=== PATIENT | male | born 1930 | race Caucasian/White ===

== ENCOUNTER 2016-07-13 07:53 | Inpatient (IN) | payer OTHER ==
[~2016-07-13] VITALS: Ht 182.9 cm; Wt 52.4 kg
--- NOTE | 2016-07-13 09:19 | ED NURSING NOTES ---
Clinical Report - Nurses [facility] [address] [place] [address] 07/13/2016 7:57 Patient: PARTH TREVIZO TRIAGE Triage time 07:51 Jul 13 2016. Acuity: LEVEL 3. Chief Complaint: DIZZINESS. 08:07/13/16. Alert. No acute distress. SEPSIS SCREEN: Sepsis Screen. Negative (no infection suspected/documented). JERSE[place] COMA SCORE: [place] Coma Scale: 15- eyes open spontaneously (4); best verbal response- oriented x 4 (5); best motor response- obeys commands (6). --08:01 Justa Covington 08:07/13/16. BP: 139/89. HR: 94. RR: 18. O2 saturation: 98%. Temp: 98.1 F. Pain level now 0/10. --08:01 Justa Covington. Weight: 68 kg stated. Height/Length: 72 inches Per Patient. BMI: 20.3. --07:59 Justa Covington. Medications None. --07:57 Justa Covington. Medication/allergy information source: the patient. --08:01 Justa Covington. Allergies None. --07:57 Justa Covington. History Arrived by EMS. Historian: EMS. Unaccompanied. No primary care physician. This started "a couple days ago". ( Negative FAST exam. Pt reports feeling "shitty." Pt denies cough, vomiting, syncope.). The patient has had weakness. No ear pain, nausea, trouble walking, headache or vomiting. No fainting episodes or tinnitus. 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 BP: 130/palp. HR: 72. ( Hasn't been eating recently. EMS reports family states he's had a cold recently, pt denies. Pt is alert and oriented. Lives at [address], unassisted. Usually gets around with a walker.). PAST MEDICAL HX: No history of stroke, diabetes mellitus or hypertension. No history of seizures or GI bleed. Immunizations: status is unknown. SOCIAL HX: Never smoker. No alcohol use or drug use. NUTRITIONAL RISK ASSESSMENT: The nutritional risk assessment revealed no deficiencies. FUNCTIONAL ASSESSMENT: Functional assessment: no impairments noted. LEARNING NEEDS ASSESSMENT: The learning needs assessment revealed no barriers. FALL RISK ASSESSMENT: Fall risk assessment completed. Risk factors identified include patient age greater than 65 years. SKIN INTEGRITY ASSESSMENT: Skin integrity risk assessment completed. No skin integrity risk identified. --08:01 Justa Covington. PROBLEMS: None. --07:57 Justa Covington. ADDITIONAL SURGERIES: Hip Surgery. --07:57 Justa Covington Inguinal Hernia Repair. --07:58 Justa Covington. Assessment The patient states feels the same. --08:01 Justa Covington. Interventions ID band on patient. --08:01 Justa Covington. PHYSICAL ASSESSMENT 08:01 07/13/16. To room via stretcher. Patient gowned. GENERAL / NEURO / PSYCH: Oriented X 4. Appears in no acute distress. Alert. Speech within normal limits. HEENT: No facial asymmetry noted. Pupils equal, round and reactive to light. RESPIRATORY: Respirations not labored. CVS: Capillary refill less than 2 seconds. GI / : Abdomen soft and nontender. SKIN: Skin is warm and dry. --08:01 Justa Covington. NURSING PROGRESS NOTES 08:02 07/13/16. The plan of care for this patient has been created. quality assurance monitor, pulse oximeter and NIBP monitor placed on patient; monitoring manager- Lead II and V5; monitor alarms on. Patient gowned. Head of bed elevated. Reassurance given. Two patient identifiers checked. Call light placed in reach. Side rails up x 2. Bed placed in lowest position. Brakes of bed on. Patient ready for evaluation- chart flagged and ED physician notified. --08:02 Justa Covington 08:21 07/13/2016 Site #1 started via IV in the right forearm with an 20g angiocath; one attempt. Blood drawn: rainbow set. Labeled in the presence of the patient and sent to the lab. Saline lock flushed with 10 mL saline. --08:31 Isela Castaneda R.N. 08:32 07/13/2016 Started bag #1 500 mL IV Fluids IV NS (Saline); at 250 mL/hr over 1 hour(s) via site #1 --08:32 Isela Castaneda R.N. ( Urine collected and sent to the lab). --08:33 Isela Castaneda R.N. ( Lab here drawing blood.). --09:46 Ros Mena R.N. 09:03 07/13/2016 IV Fluids IV NS Response: no adverse reaction. --10:03 Rhiannon Hopper R.N. 09:24 07/13/2016 Started 2 gm of Ceftriaxone IVPB in bag #1 50 mL; at 150 mL/hr over 30 minute(s) via site #1 via IV pump. Allergies verified and confirmed 5 rights. IV patency established. IV site checked: no pain, redness, or swelling. IV flushed thoroughly pre- and post-medication administration. --09:24 Rhiannon Hopper R.N. 09:46 07/13/2016 Ceftriaxone IVPB Discontinued: bag #1 infused. Total amount infused: 50 mL. IV patency established. IV site checked: no pain, redness, or swelling. IV flushed thoroughly. --09:46 Ros Mena R.N. 08:30 late entry -. Reassurance given. Reassessment after fluids administered and medication administered. He has had no adverse reaction. Overall patient status is the same. RESPIRATORY: Respiratory distress present. Two patient identifiers checked. Call light placed in reach. Side rails up x 2. Bed placed in lowest position. Brakes of bed on. Brakes of chair on. --10:13 Rhiannon Hopper R.N. 08:30 07/13/16. BP: 124/74 taken on the left arm, via an automated monitor, while lying. HR: 88. RR: 17. O2 saturation: 98%. Temp: 97.8 F (oral). Pain level now: 0/10. --10:13 Rhiannon Hopper R.N. 09:00 07/13/16. BP: 105/88 (small adult cuff) taken on the left arm, via an automated monitor, while lying. HR: 88. RR: 17. O2 saturation: 98% on room air. Pain level now: 0/10. --10:16 Rhiannon Hopper R.N. 09:00 late entry -. Warming measures: blanket applied. Assisted patient (assistance with urination). Reassurance given. The patient is calm. ( Pt forgetful at times, continuous reassurance given, call bed at bedside and side rails up, safety maintained). --10:16 Rhiannon Hopper R.N. 10:16 07/13/16. BP: 105/88 (small adult cuff) taken on the right arm, via an automated monitor, while lying. HR: 98. RR: 19. O2 saturation: 98% on room air. Pain level now: 0/10. --10:17 Rhiannon Hopper R.N. Cardiac rhythm: normal sinus rhythm. Reassurance given. GENERAL / NEURO / PSYCH: Patient is calm and cooperative. Alert. RESPIRATORY: Denies difficulty breathing. CVS: Denies chest pain. Two patient identifiers checked. Call light placed in reach. Side rails up x 2. Bed placed in lowest position. Brakes of bed on. Brakes of chair on. --10:17 Rhiannon Hopper R.N. 09:15 07/13/2016 IV Fluids IV NS Discontinued: bag #1 completed upon admission. Total amount infused: 500 mL. IV patency established. IV site checked: no pain, redness, or swelling. IV flushed thoroughly. --10:48 Rhiannon Hopper R.N. DISPOSITION / DISCHARGE 10:41 07/13/2016 Site #1 reassessed; patent. Flushed with 10 mL saline. --10:41 Rhiannon Hopper R.N. Cardiac rhythm: normal sinus rhythm. Departure time: 1043 AM. Condition at departure: stable. Fall risk assessment completed. Risk factors identified include patient age greater than 65 years and impairment of mobility, hearing and cognition. Fall interventions initiated. Side rails up x2. Brakes on Bed in low position. Patient visible from nurses' station. Call light in reach of patient. Instructed not to get up without assistance. Admitted to the Critical Care Unit (1042 AM). Transferred. Transported via stretcher by transport team. Report was given to a nurse. Report included patient's care, treatment, medications, reviewed medication reconcilliation, and condition (including any recent changes or anticipated changes). All questions were answered. Report was acknowledged. (ZAHEER Moore). ( Pt transferred safely via stretcher, VSS). --10:45 Rhiannon Hopper R.N. 10:40 07/13/16. BP: 108/87 (small adult cuff) taken on the left arm, via an automated monitor, while lying. HR: 78. RR: 12. O2 saturation: 98%. Temp: 97.8 F. Pain level now: 0/10. --10:45 Rhiannon Hopper R.N. Locked/Released at 07/13/2016 10:48 by Rhiannon Hopper R.N.
--- NOTE | 2016-07-13 09:19 | ED ORDER SUMMARY ---
..... Patient: PARTH TREVIZO OrderSheet [facility] VisitID: [id number] [address] [place] [address] 85y, M Registration Date/Time: 07/13/2016 ORDER SHEET Weight: 68.0 kg (stated) Allergies: None GENERAL ORDERS: Chest 2V Urgent (08:07/13/2016 Bandar Boyd) (Ack 8:42 RKaruga) (8:53 EHassan R.N.) Tube Backer (Continuous) (weak, dizzy. ) (08:07/13/2016 Bandar Boyd) (8:33 SStone R.N.) CBC w Diff Urgent (08:07/13/2016 Bandar Boyd) (Ack 8:42 RKaruga) (8:53 EHassan R.N.) CMP Urgent (08:07/13/2016 Bandar Boyd) (Ack 8:42 RKaruga) (8:53 EHassan R.N.) UA-Culture if indicated Urgent (08:07/13/2016 Bandar Boyd) (Ack 8:42 RKaruga) (8:53 EHassan R.N.) Lactate, Serum Urgent (08:07/13/2016 Bandar Boyd) (Ack 8:42 RKaruga) (8:53 EHassan R.N.) Pulse oximeter (08:07/13/2016 Bandar Boyd) (8:33 SStone R.N.) EKG - ER Stat (08:17 07/13/2016 Bandar Boyd) (8:18 SBalde R.N.) PCT (Procalcitonin) Urgent (09:13 07/13/2016 Bandar Boyd) (9:15 EHassan R.N.) Blood Culture (No) (N/A) Urgent (09:14 07/13/2016 Bandar Boyd) (Ack 9:40 RKaruga) (9:46 SBalde R.N.) MEDICATION ORDERS: IV FLUIDS: IV NS : initial bolus 500 mL (1000 mL/hr), then none - for X1 (NOW) (08:16 07/13/2016 Bandar Boyd) (Ack 8:17 SStone R.N.) (8:32 SStone R.N.) Ceftriaxone IV 2 gm/50mL (NOW) (09:14 07/13/2016 Bandar Boyd) (9:24 EHassan R.N.) Azithromycin IV 500 mg/250 mL (NOW) (09:14 07/13/2016 Bandar Boyd) ORDER SHEET NOTES: [Electronically signed by Rhiannon Hopper R.N. (10:48 07/13/2016)] [Electronically signed by Ayan Hernandes Dr. (03:55 07/20/2016)] [Electronically locked/signed by Rhiannon Hopper R.N. (10:48 07/13/2016)]
--- NOTE | 2016-07-13 09:19 | ED CLINICAL REPORT ---
Clinical Report - Physicians/Mid Levels [facility] [address] [place] [address] 07/13/2016 7:57 Patient: PARTH TREVIZO Arrived- By ambulance. Historian- patient and EMS personnel. HISTORY OF PRESENT ILLNESS Chief Complaint: DIZZINESS and WEAKNESS. Severity described as moderate at its maximum. When seen in the E.D., severity described as moderate. Modifying factors- relieved by nothing. Not worsened by anything. This started past few days and is still present and worsening. It was gradual in onset and has been constant but is not gone now. Patient was last known well (a few days ago). Described as feeling weak all over. No nausea, vomiting, hearing loss, tinnitus or ear pain. (Patient reports no pain anywhere, difficulty breathing, numbness, cough, fever, weakness, tingling, urinary symptoms or bowel problems.). Similar symptoms previously: None. Recent medical care: Not recently seen/assessed. REVIEW OF SYSTEMS No headache, head injury, chest pain or fever. All systems otherwise negative, except as recorded above. PAST HISTORY See nurses notes. Medications: None. Allergies: None. SOCIAL HISTORY Never smoker. No alcohol use or drug use. Is a local resident. ADDITIONAL NOTES The nursing notes have been reviewed. PHYSICAL EXAM Vital Signs: 07/13/2016 08:01 BP: 139/89. HR: 94. RR: 18. O2 saturation: 98%. Temp: 98.1 F. Blood pressure normal. Oxygen saturation normal. Appearance: Alert. No acute distress. Eyes: Pupils equal, round and reactive to light. No nystagmus. Extraocular movements normal. ENT: Normal ENT inspection. TM's normal. Dry mucous membranes present. Pharynx normal. Neck: Normal inspection. Neck supple. No meningeal signs. CVS: Normal heart rate and rhythm. Heart sounds normal. Pulses normal. Respiratory: No respiratory distress. Breath sounds normal. Abdomen: Soft and nontender. No organomegaly. Back: Normal inspection. Skin: Skin warm and dry. Normal skin color. No rash. Normal skin turgor. Extremities: Extremities exhibit normal ROM. No lower extremity edema. Neuro: Alert. Mood/affect normal. Speech normal. Cranial nerves normal (as tested). No motor deficit. No sensory deficit. LABS, X-RAYS, AND EKG EKG: No acute ischemia. Rate: 87. Normal P waves. Normal NADIA. Normal QRS complex. Normal axis. Left axis deviation. Normal ST and T waves, QT and QTc. The study has been interpreted contemporaneously by me. The study has been independently viewed by me. Artifact present. Chest X-ray: (bilateral patchy infiltrates concerning for pneumonia). Views: PA and lateral. The X-rays were independently viewed by me and interpreted contemporaneously by me. Laboratory Tests: CBC w Diff: (MARGI: 07/14/2016 04:20) ( MsgRcvd 07/14/2016 05:39) Final results Test Result Flag Units (Reference) WHITE BLOOD COUNT 7.8 K/uL (4.5-11.5) RED BLOOD COUNT 4.09 L M/uL (4.50-5.90) HEMOGLOBIN 12.3 L gm/dL (13.5-17.5) HEMATOCRIT 37.9 L % (41.0-53.0) MEAN CELL VOLUME 93 fL (80-100) MEAN CORPUSCULAR HGB 30 pg (26-34) MEAN CORPUSCULAR HGB CONC 32 g/dL (31-37) RED CELL DISTRIBUTION WIDTH 14.9 H % (11.6-14.8) PLATELET COUNT 262 K/uL (150-400) NEUTROPHIL % 80.5 H % (50-75) LYMPH % 10.1 L % (25-40) MONO % 7.7 % (3-14) EOSINOPHIL % 1.6 % (0-4) BASOPHIL % 0.1 % (0-2) BMP: (MARGI: 07/14/2016 04:20) ( MsgRcvd 07/14/2016 05:57) Final results Test Result Flag Units (Reference) GLUCOSE 76 mg/dL (70-110) BUN 20 # H mg/dL (7-18) CREATININE 0.6 mg/dL (0.6-1.3) Estimated GFR >60 mL/min Estimated GFR- >60 mL/min Note: Persistent reduction over 3 months in eGFR<60 mL/min/1.73 m2 defines CKD. Patients with eGFR values>=60 mL/min/1.73 m2 may also have CKD if evidence ofpersistent proteinuria. Additional information may be foundat www.kidney.org. SODIUM 142 mmol/L (136-145) POTASSIUM 3.4 L mmol/L (3.5-5.1) CHLORIDE 107 mmol/L (98-107) CARBON DIOXIDE 25 mmol/L (21-32) CALCIUM 7.6 L mg/dL (8.5-10.1) MAGNESIUM 1.7 L mg/dL (1.8-2.4) UA-Culture if indicated: (MARGI: 07/13/2016 08:30) ( MsgRcvd 07/13/2016 09:01) Final results Test Result Flag Units (Reference) URINE COLOR DERRICK URINE APPEARANCE CLEAR URINE GLUCOSE NEGATIVE (NEGATIVE) URINE BILIRUBIN 1+ (NEGATIVE) URINE BILIRUBIN ICTOTEST NEGATIVE (NEGATIVE) URINE KETONE TRACE (NEGATIVE) URINE SPECIFIC GRAVITY 1.025 (1.010-1.030) URINE PH 6.0 (5.0-8.0) URINE PROTEIN TRACE (NEGATIVE) URINE UROBILINOGEN 1.0 EU/dL (0.2-1.0) URINE NITRITE NEGATIVE (NEGATIVE) URINE BLOOD 2+ (NEGATIVE) URINE LEUK ESTERASE NEGATIVE (NEGATIVE) URINE RBC 3-5 rbc/hpf (0-1) URINE WBC 1-3 wbc/hpf (0-1) URINE EPITHELIAL CELLS 1-3 EPI/hpf (0-5) URINE BACTERIA FEW (1+) (NONE SEEN) URINE COMMENT CULT NOT INDICATED 1+ AMORPHOUS URATESURINE CULTURES ARE SET-UP BASED ON THE FOLLOWING CRITERIA:POSITIVE NITRITEPOSITIVE LEUKOCYTE ESTERASEGREATER THAN 10 WHITE BLOOD CELLSMODERATE (2+) OR GREATER BACTERIA CBC w Diff: (MARGI: 07/13/2016 08:25) ( MsgRcvd 07/13/2016 08:35) Final results Test Result Flag Units (Reference) WHITE BLOOD COUNT 8.7 K/uL (4.5-11.5) RED BLOOD COUNT 4.71 M/uL (4.50-5.90) HEMOGLOBIN 14.1 gm/dL (13.5-17.5) HEMATOCRIT 43.7 % (41.0-53.0) MEAN CELL VOLUME 93 fL (80-100) MEAN CORPUSCULAR HGB 30 pg (26-34) MEAN CORPUSCULAR HGB CONC 32 g/dL (31-37) RED CELL DISTRIBUTION WIDTH 14.6 % (11.6-14.8) PLATELET COUNT 323 K/uL (150-400) NEUTROPHIL % 87.3 H % (50-75) LYMPH % 7.1 L % (25-40) MONO % 5.5 % (3-14) EOSINOPHIL % 0.1 % (0-4) BASOPHIL % 0 % (0-2) [id number]: (MARGI: 07/13/2016 08:25) ( MsgRcvd 07/13/2016 10:09) Final results Test Result Flag Units (Reference) PROCALCITONIN <0.5 ng/mL (0-0.5) PCT Concentration: Interpretation : Risk/option for action PCT <=0.5 ng/mL : Systemic : Low risk forinfection(sepsis): progression to severeis not likely. : systemic infection.Local bacterial : CAUTION-PCT levelsinfection is : below 0.5 ng/mL do notpossible. : exclude an infection,because localizedinfections (withoutsystemic signs) may beassociated with suchlow levels. If PCT ismeasured very earlyafter a bacterialchallenge (usually <6hours), these valuesmay still be low. Inthis case PCT shouldbe re-assessed 6-24hours later. PCT >0.5 and : Systemic infection: Moderate risk for<= 2 ng/mL : (sepsis) is : progression to severepossible, but : systemic infection.other conditions : The patient should beare known to : closely monitoredelevate PCT. : both clinically andby re-assessing PCTwithin 6-24 hours. PCT > 2 ng/mL : Systemic infection: High risk for(sepsis) is likely: progression to severeunless other : systemic infection.causes are known. : PCT >= 10 ng/mL : Important systemic: High likelihood ofinflammatory : severe sepsis orresponse, almost : septic shock.exclusively due to:severe bacterial :sepsis or septic :shock. : Lactate, Serum: (MARGI: 07/13/2016 08:40) ( [facility] 07/13/2016 09:27) Final results Test Result Flag Units (Reference) LACTIC ACID 1.4 mmol/L (0.4-2.0) CMP: (MARGI: 07/13/2016 08:25) ( [facility] 07/13/2016 13:21) Final results Test Result Flag Units (Reference) GLUCOSE 114 H mg/dL (70-110) BUN 30 H mg/dL (7-18) CREATININE 0.9 mg/dL (0.6-1.3) Estimated GFR >60 mL/min Estimated GFR- >60 mL/min Note: Persistent reduction over 3 months in eGFR<60 mL/min/1.73 m2 defines CKD. Patients with eGFR values>=60 mL/min/1.73 m2 may also have CKD if evidence ofpersistent proteinuria. Additional information may be foundat www.kidney.org. SODIUM 147 H mmol/L (136-145) POTASSIUM 3.4 L mmol/L (3.5-5.1) CHLORIDE 111 H mmol/L (98-107) CARBON DIOXIDE 25 mmol/L (21-32) CALCIUM 9.1 mg/dL (8.5-10.1) TOTAL PROTEIN 7.7 g/dL (6.4-8.2) ALBUMIN 3.0 L g/dL (3.3-5.0) BILIRUBIN, TOTAL 1.3 H mg/dL (0.0-1.0) ALKALINE PHOSPHATASE 70 U/L (46-116) AST (SGOT) 28 U/L (15-37) ALT (SGPT) 33 U/L (12-78) LIPASE 100 U/L (73-393) THYROID STIMULATING HORMONE 1.607 uIU/mL (0.30-3.74) Rapid Influenza Screen: (MARGI: 07/13/2016 00:00) ( [facility] 07/13/2016 15:35) Final results SPECIMEN DESCRIPTION: xx Test Result Flag Units (Reference) RAPID INFLUENZA SCREEN DATE: 07/13/16 INFLUENZA A: NEGATIVE SCREEN FOR INFLUENZA A INFLUENZA B: NEGATIVE SCREEN FOR INFLUENZA B MRSA Screen: (MARGI: 07/13/2016 10:55) ( [facility] 07/15/2016 11:51) Final results Is patient on antibiotics? Y If so, list antibiotic: AZYTHROMICIN Test Result Flag Units (Reference) MRSA SCREEN DATE: 07/15/16 MRSA ISOLATED?: NO MRSA ISOLATED MSSA ISOLATED?: NO MSSA (Methacilin Sensitive Staph aureus NOT Isolated) MRSA SCREEN ONLY Blood Culture: (MARGI: 07/13/2016 09:50) ( [facility] 07/18/2016 10:05) Final results Is patient on antibiotics? N If so, list antibiotic: N/A Test Result Flag Units (Reference) CULTURE, BLOOD NO GROWTH Blood Culture: (MARGI: 07/13/2016 10:03) ( [facility] [place] 10:05[place] Final results Is patient on antibiotics? N If so, list antibiotic: N/A Test Result Flag Units (Reference) CULTURE, BLOOD NO GROWTH . PROGRESS AND PROCEDURES Course of Care: the patient is a pleasant cooperative 85-year-old male with no pertinent past medical history presenting for evaluation of generalized weakness and dizziness. The patient reports no pain at this time. No injury. Patient's vital signs are otherwise unremarkable. We'll be evaluating patient's symptoms with chest x-ray, blood work, and urinalysis. At this time will be evaluating for systemic causes for the patient's generalized weakness. Mucous membranes are dry and examination. Likely, patient dehydrated. IV hydration ordered. the patient's workup was remarkable for abnormal chest x-ray. Patient bilateral patchy infiltrates. Concern at this time for bacterial pneumonia. Blood cultures as well as PTT has been ordered. antibiotics have also been ordered. I spoke to the hospitalist who will accept the patient. No further recommendations. Orders have been placed into [facility]. Patient's vital signs are unremarkable here in the emergency department. Patient is not hypoxic. Blood pressure is adequate. Patient is not tachycardic. patient is stable for floor level of care. Patient does not need to be admitted to the intensive care unit this time. Discussed with patient workup, diagnosis, plan of care. All questions answered. The patient expressed understanding of these instructions and is agreeable to them. patient is not a stable outpatient candidate Because of age and BUN > 19 patient in moderate risk group with CURB65 criteria. Critical care performed (40 minutes). Time is exclusive of separately billable procedures. Time includes: direct patient care, patient reassessment, coordination of patient care, interpretation of data (laboratory data and chest xrays), review of patient's medical records, medical consultation and documentation of patient care. Disposition: Admitted to Acute Care. CLINICAL IMPRESSION Acute hypernatremia bilateral pneumonia, acute bacterial acute dehydration. (Electronically signed by Ayan Hernandes Dr. 07/20/2016 3:55) Addenda for PARTH TREVIZO VisitID: [id number] Date: 07/13/2016 07/13/2016 12:07 I personally performed an EKG at 8:08am and showed it to ED Phys. (Electronically signed by Nancy Araujo - 07/13/2016 12:07)
--- NOTE | 2016-07-13 09:19 | ED ORDER SUMMARY ---
..... Patient: PARTH TREVIZO OrderSheet [facility] VisitID: [id number] [address] [place] [address] 85y, M Registration Date/Time: 07/13/2016 ORDER SHEET Weight: 68.0 kg (stated) Allergies: None GENERAL ORDERS: Chest 2V Urgent (08:07/13/2016 Bandar Boyd) (Ack 8:42 RKaruga) (8:53 EHassan R.N.) Stock Transfer Clerk (Continuous) (weak, dizzy. ) (08:07/13/2016 Bandar Boyd) (8:33 SStone R.N.) CBC w Diff Urgent (08:07/13/2016 Bandar Boyd) (Ack 8:42 RKaruga) (8:53 EHassan R.N.) CMP Urgent (08:07/13/2016 Bandar Boyd) (Ack 8:42 RKaruga) (8:53 EHassan R.N.) UA-Culture if indicated Urgent (08:07/13/2016 Bandar Boyd) (Ack 8:42 RKaruga) (8:53 EHassan R.N.) Lactate, Serum Urgent (08:07/13/2016 Bandar Boyd) (Ack 8:42 RKaruga) (8:53 EHassan R.N.) Pulse oximeter (08:07/13/2016 Bandar Boyd) (8:33 SStone R.N.) EKG - ER Stat (08:17 07/13/2016 Bandar Boyd) (8:18 SBalde R.N.) PCT (Procalcitonin) Urgent (09:13 07/13/2016 Bandar Boyd) (9:15 EHassan R.N.) Blood Culture (No) (N/A) Urgent (09:14 07/13/2016 Bandar Boyd) (Ack 9:40 RKaruga) (9:46 SBalde R.N.) MEDICATION ORDERS: IV FLUIDS: IV NS : initial bolus 500 mL (1000 mL/hr), then none - for X1 (NOW) (08:16 07/13/2016 Bandar Boyd) (Ack 8:17 SStone R.N.) (8:32 SStone R.N.) Ceftriaxone IV 2 gm/50mL (NOW) (09:14 07/13/2016 Bandar Boyd) (9:24 EHassan R.N.) Azithromycin IV 500 mg/250 mL (NOW) (09:14 07/13/2016 Bandar Boyd) ORDER SHEET NOTES: [Electronically signed by Rhiannon Hopper R.N. (10:48 07/13/2016)] [Electronically signed by Ayan Hernandes Dr. (03:55 07/20/2016)] [Electronically locked/signed by Rhiannon Hopper R.N. (10:48 07/13/2016)]
--- NOTE | 2016-07-13 09:19 | ED CLINICAL REPORT ---
Clinical Report - Physicians/Mid Levels [facility] [address] [place] [address] 07/13/2016 7:57 Patient: PARTH TREVIZO Arrived- By ambulance. Historian- patient and EMS personnel. HISTORY OF PRESENT ILLNESS Chief Complaint: DIZZINESS and WEAKNESS. Severity described as moderate at its maximum. When seen in the E.D., severity described as moderate. Modifying factors- relieved by nothing. Not worsened by anything. This started past few days and is still present and worsening. It was gradual in onset and has been constant but is not gone now. Patient was last known well (a few days ago). Described as feeling weak all over. No nausea, vomiting, hearing loss, tinnitus or ear pain. (Patient reports no pain anywhere, difficulty breathing, numbness, cough, fever, weakness, tingling, urinary symptoms or bowel problems.). Similar symptoms previously: None. Recent medical care: Not recently seen/assessed. REVIEW OF SYSTEMS No headache, head injury, chest pain or fever. All systems otherwise negative, except as recorded above. PAST HISTORY See nurses notes. Medications: None. Allergies: None. SOCIAL HISTORY Never smoker. No alcohol use or drug use. Is a local resident. ADDITIONAL NOTES The nursing notes have been reviewed. PHYSICAL EXAM Vital Signs: 07/13/2016 08:01 BP: 139/89. HR: 94. RR: 18. O2 saturation: 98%. Temp: 98.1 F. Blood pressure normal. Oxygen saturation normal. Appearance: Alert. No acute distress. Eyes: Pupils equal, round and reactive to light. No nystagmus. Extraocular movements normal. ENT: Normal ENT inspection. TM's normal. Dry mucous membranes present. Pharynx normal. Neck: Normal inspection. Neck supple. No meningeal signs. CVS: Normal heart rate and rhythm. Heart sounds normal. Pulses normal. Respiratory: No respiratory distress. Breath sounds normal. Abdomen: Soft and nontender. No organomegaly. Back: Normal inspection. Skin: Skin warm and dry. Normal skin color. No rash. Normal skin turgor. Extremities: Extremities exhibit normal ROM. No lower extremity edema. Neuro: Alert. Mood/affect normal. Speech normal. Cranial nerves normal (as tested). No motor deficit. No sensory deficit. LABS, X-RAYS, AND EKG EKG: No acute ischemia. Rate: 87. Normal P waves. Normal NADIA. Normal QRS complex. Normal axis. Left axis deviation. Normal ST and T waves, QT and QTc. The study has been interpreted contemporaneously by me. The study has been independently viewed by me. Artifact present. Chest X-ray: (bilateral patchy infiltrates concerning for pneumonia). Views: PA and lateral. The X-rays were independently viewed by me and interpreted contemporaneously by me. Laboratory Tests: CBC w Diff: (MARGI: 07/14/2016 04:20) ( MsgRcvd 07/14/2016 05:39) Final results Test Result Flag Units (Reference) WHITE BLOOD COUNT 7.8 K/uL (4.5-11.5) RED BLOOD COUNT 4.09 L M/uL (4.50-5.90) HEMOGLOBIN 12.3 L gm/dL (13.5-17.5) HEMATOCRIT 37.9 L % (41.0-53.0) MEAN CELL VOLUME 93 fL (80-100) MEAN CORPUSCULAR HGB 30 pg (26-34) MEAN CORPUSCULAR HGB CONC 32 g/dL (31-37) RED CELL DISTRIBUTION WIDTH 14.9 H % (11.6-14.8) PLATELET COUNT 262 K/uL (150-400) NEUTROPHIL % 80.5 H % (50-75) LYMPH % 10.1 L % (25-40) MONO % 7.7 % (3-14) EOSINOPHIL % 1.6 % (0-4) BASOPHIL % 0.1 % (0-2) BMP: (MARGI: 07/14/2016 04:20) ( MsgRcvd 07/14/2016 05:57) Final results Test Result Flag Units (Reference) GLUCOSE 76 mg/dL (70-110) BUN 20 # H mg/dL (7-18) CREATININE 0.6 mg/dL (0.6-1.3) Estimated GFR >60 mL/min Estimated GFR- >60 mL/min Note: Persistent reduction over 3 months in eGFR<60 mL/min/1.73 m2 defines CKD. Patients with eGFR values>=60 mL/min/1.73 m2 may also have CKD if evidence ofpersistent proteinuria. Additional information may be foundat [email or web address]. SODIUM 142 mmol/L (136-145) POTASSIUM 3.4 L mmol/L (3.5-5.1) CHLORIDE 107 mmol/L (98-107) CARBON DIOXIDE 25 mmol/L (21-32) CALCIUM 7.6 L mg/dL (8.5-10.1) MAGNESIUM 1.7 L mg/dL (1.8-2.4) UA-Culture if indicated: (MARGI: 07/13/2016 08:30) ( MsgRcvd 07/13/2016 09:01) Final results Test Result Flag Units (Reference) URINE COLOR DERRICK URINE APPEARANCE CLEAR URINE GLUCOSE NEGATIVE (NEGATIVE) URINE BILIRUBIN 1+ (NEGATIVE) URINE BILIRUBIN ICTOTEST NEGATIVE (NEGATIVE) URINE KETONE TRACE (NEGATIVE) URINE SPECIFIC GRAVITY 1.025 (1.010-1.030) URINE PH 6.0 (5.0-8.0) URINE PROTEIN TRACE (NEGATIVE) URINE UROBILINOGEN 1.0 EU/dL (0.2-1.0) URINE NITRITE NEGATIVE (NEGATIVE) URINE BLOOD 2+ (NEGATIVE) URINE LEUK ESTERASE NEGATIVE (NEGATIVE) URINE RBC 3-5 rbc/hpf (0-1) URINE WBC 1-3 wbc/hpf (0-1) URINE EPITHELIAL CELLS 1-3 EPI/hpf (0-5) URINE BACTERIA FEW (1+) (NONE SEEN) URINE COMMENT CULT NOT INDICATED 1+ AMORPHOUS URATESURINE CULTURES ARE SET-UP BASED ON THE FOLLOWING CRITERIA:POSITIVE NITRITEPOSITIVE LEUKOCYTE ESTERASEGREATER THAN 10 WHITE BLOOD CELLSMODERATE (2+) OR GREATER BACTERIA CBC w Diff: (MARGI: 07/13/2016 08:25) ( MsgRcvd 07/13/2016 08:35) Final results Test Result Flag Units (Reference) WHITE BLOOD COUNT 8.7 K/uL (4.5-11.5) RED BLOOD COUNT 4.71 M/uL (4.50-5.90) HEMOGLOBIN 14.1 gm/dL (13.5-17.5) HEMATOCRIT 43.7 % (41.0-53.0) MEAN CELL VOLUME 93 fL (80-100) MEAN CORPUSCULAR HGB 30 pg (26-34) MEAN CORPUSCULAR HGB CONC 32 g/dL (31-37) RED CELL DISTRIBUTION WIDTH 14.6 % (11.6-14.8) PLATELET COUNT 323 K/uL (150-400) NEUTROPHIL % 87.3 H % (50-75) LYMPH % 7.1 L % (25-40) MONO % 5.5 % (3-14) EOSINOPHIL % 0.1 % (0-4) BASOPHIL % 0 % (0-2) [id number]: (MARGI: 07/13/2016 08:25) ( MsgRcvd 07/13/2016 10:09) Final results Test Result Flag Units (Reference) PROCALCITONIN <0.5 ng/mL (0-0.5) PCT Concentration: Interpretation : Risk/option for action PCT <=0.5 ng/mL : Systemic : Low risk forinfection(sepsis): progression to severeis not likely. : systemic infection.Local bacterial : CAUTION-PCT levelsinfection is : below 0.5 ng/mL do notpossible. : exclude an infection,because localizedinfections (withoutsystemic signs) may beassociated with suchlow levels. If PCT ismeasured very earlyafter a bacterialchallenge (usually <6hours), these valuesmay still be low. Inthis case PCT shouldbe re-assessed 6-24hours later. PCT >0.5 and : Systemic infection: Moderate risk for<= 2 ng/mL : (sepsis) is : progression to severepossible, but : systemic infection.other conditions : The patient should beare known to : closely monitoredelevate PCT. : both clinically andby re-assessing PCTwithin 6-24 hours. PCT > 2 ng/mL : Systemic infection: High risk for(sepsis) is likely: progression to severeunless other : systemic infection.causes are known. : PCT >= 10 ng/mL : Important systemic: High likelihood ofinflammatory : severe sepsis orresponse, almost : septic shock.exclusively due to:severe bacterial :sepsis or septic :shock. : Lactate, Serum: (MARGI: 07/13/2016 08:40) ( [facility] 07/13/2016 09:27) Final results Test Result Flag Units (Reference) LACTIC ACID 1.4 mmol/L (0.4-2.0) CMP: (AMRGI: 07/13/2016 08:25) ( [facility] 07/13/2016 13:21) Final results Test Result Flag Units (Reference) GLUCOSE 114 H mg/dL (70-110) BUN 30 H mg/dL (7-18) CREATININE 0.9 mg/dL (0.6-1.3) Estimated GFR >60 mL/min Estimated GFR- >60 mL/min Note: Persistent reduction over 3 months in eGFR<60 mL/min/1.73 m2 defines CKD. Patients with eGFR values>=60 mL/min/1.73 m2 may also have CKD if evidence ofpersistent proteinuria. Additional information may be foundat [email or web address]. SODIUM 147 H mmol/L (136-145) POTASSIUM 3.4 L mmol/L (3.5-5.1) CHLORIDE 111 H mmol/L (98-107) CARBON DIOXIDE 25 mmol/L (21-32) CALCIUM 9.1 mg/dL (8.5-10.1) TOTAL PROTEIN 7.7 g/dL (6.4-8.2) ALBUMIN 3.0 L g/dL (3.3-5.0) BILIRUBIN, TOTAL 1.3 H mg/dL (0.0-1.0) ALKALINE PHOSPHATASE 70 U/L (46-116) AST (SGOT) 28 U/L (15-37) ALT (SGPT) 33 U/L (12-78) LIPASE 100 U/L (73-393) THYROID STIMULATING HORMONE 1.607 uIU/mL (0.30-3.74) Rapid Influenza Screen: (MARGI: 07/13/2016 00:00) ( [facility] 07/13/2016 15:35) Final results SPECIMEN DESCRIPTION: xx Test Result Flag Units (Reference) RAPID INFLUENZA SCREEN DATE: 07/13/16 INFLUENZA A: NEGATIVE SCREEN FOR INFLUENZA A INFLUENZA B: NEGATIVE SCREEN FOR INFLUENZA B MRSA Screen: (MARGI: 07/13/2016 10:55) ( [facility] 07/15/2016 11:51) Final results Is patient on antibiotics? Y If so, list antibiotic: AZYTHROMICIN Test Result Flag Units (Reference) MRSA SCREEN DATE: 07/15/16 MRSA ISOLATED?: NO MRSA ISOLATED MSSA ISOLATED?: NO MSSA (Methacilin Sensitive Staph aureus NOT Isolated) MRSA SCREEN ONLY Blood Culture: (MARGI: 07/13/2016 09:50) ( [facility] 07/18/2016 10:05) Final results Is patient on antibiotics? N If so, list antibiotic: N/A Test Result Flag Units (Reference) CULTURE, BLOOD NO GROWTH Blood Culture: (MARGI: 07/13/2016 10:03) ( [facility]18[facility] 10:05) Final results Is patient on antibiotics? N If so, list antibiotic: N/A Test Result Flag Units (Reference) CULTURE, BLOOD NO GROWTH . PROGRESS AND PROCEDURES Course of Care: the patient is a pleasant cooperative 85-year-old male with no pertinent past medical history presenting for evaluation of generalized weakness and dizziness. The patient reports no pain at this time. No injury. Patient's vital signs are otherwise unremarkable. We'll be evaluating patient's symptoms with chest x-ray, blood work, and urinalysis. At this time will be evaluating for systemic causes for the patient's generalized weakness. Mucous membranes are dry and examination. Likely, patient dehydrated. IV hydration ordered. the patient's workup was remarkable for abnormal chest x-ray. Patient bilateral patchy infiltrates. Concern at this time for bacterial pneumonia. Blood cultures as well as PTT has been ordered. antibiotics have also been ordered. I spoke to the hospitalist who will accept the patient. No further recommendations. Orders have been placed into [employer]. Patient's vital signs are unremarkable here in the emergency department. Patient is not hypoxic. Blood pressure is adequate. Patient is not tachycardic. patient is stable for floor level of care. Patient does not need to be admitted to the intensive care unit this time. Discussed with patient workup, diagnosis, plan of care. All questions answered. The patient expressed understanding of these instructions and is agreeable to them. patient is not a stable outpatient candidate Because of age and BUN > 19 patient in moderate risk group with CURB65 criteria. Critical care performed (40 minutes). Time is exclusive of separately billable procedures. Time includes: direct patient care, patient reassessment, coordination of patient care, interpretation of data (laboratory data and chest xrays), review of patient's medical records, medical consultation and documentation of patient care. Disposition: Admitted to Acute Care. CLINICAL IMPRESSION Acute hypernatremia bilateral pneumonia, acute bacterial acute dehydration. (Electronically signed by Ayan Hernandes Dr. 07/20/2016 3:55) Addenda for PARTH TREVIZO VisitID: [id number] Date: 07/13/2016 07/13/2016 12:07 I personally performed an EKG at 8:08am and showed it to ED Phys. (Electronically signed by Nancy Araujo - 07/13/2016 12:07)
[2016-07-13 10:54] VITALS: BP 130/82
--- NOTE | 2016-07-13 12:41 | DIAGNOSTIC IMAGING REPORT ---
PROCEDURE: XR CHEST 2 VIEW INDICATION: WEAK, DIZZY. Initial encounter TECHNIQUE: PA and lateral view. COMPARISON: None. FINDINGS: Mild hyperinflation. Diffuse interstitial markings throughout both lungs with patchy opacities in the left mid lung and throughout the right lung which may represent superimposed pneumonia. Heart size, mediastinum and pulmonary vessels are normal. Osteopenia. Severe right glenohumeral joint degenerative changes. Moderate degenerative changes of the spine pill IMPRESSION: 1. Hyperinflation with diffuse increased interstitial markings suggestive of chronic lung disease 2. Bilateral patchy alveolar opacities suggestive of superimposed pneumonia
--- NOTE | 2016-07-13 13:34 | HISTORY AND PHYSICAL ---
ADMITTED: 07/13/2016 HISTORY OF PRESENT ILLNESS: An 85-year-old male who was brought in to the ED because of dizziness and weakness and frequent falls. The patient is not a very good historian. His family is concerned that he has been losing weight and has a poor appetite. The patient reports that there are days that he just does not want to eat. He has a dry cough but no fever or chills. No shortness of breath. No PND, no orthopnea. He denies having any chest pain or pleuritic pains. No abdominal pain, nausea, vomiting. No urinary symptoms. No rash. He was seen in the emergency department where his chest x-ray showed a possible pneumonia. MEDICAL/SURGICAL MEDICAL HISTORY: Otherwise unremarkable. Past surgical history is simply the hernia surgery, hip surgery, and appendectomy. MEDICATIONS: 1. None. ALLERGIES: 1. NONE. SOCIAL HISTORY: No history of smoking. 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 No recreational drug use. He lives at [facility]. He is . 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 FAMILY HISTORY: Noncontributory to the patient's illness. REVIEW OF SYSTEMS: The rest of the review of systems is otherwise unremarkable. PHYSICAL EXAMINATION: GENERAL: Shows a well-developed, fairly nourished male. VITAL SIGNS: Blood pressure 139/89, pulse rate 94, respirations 18, O2 saturation 98% on room air, temperature is 98.1. HEENT: He is normocephalic with pink conjunctivae. Anicteric. Pupils are reactive, with dry oral mucosa. No JVD. No nasal congestion. No tonsillopharyngeal congestion. LUNGS: Show decreased breath sounds in the bases, but no rales, wheezes or use of accessory muscles of respiration. CARDIOVASCULAR: Regular rate and rhythm. S1, S2 normal. No gallops, murmurs or rubs. ABDOMEN: Soft, nontender, normoactive bowel sounds. EXTREMITIES: No edema, no cyanosis. Full peripheral pulses. NEUROLOGIC: Mood and affect are normal. Speech is normal. Cranial nerves II-XII are intact. No motor or sensory deficits. LAB/IMAGING: EKG shows normal sinus rhythm. He has some left axis deviation, nonspecific ST-T wave abnormalities. Chest x-ray shows patchy- bilateral patchy infiltrates. His labs show a UA shows specific gravity 1.025, blood +2,, a few bacteria. Hemoglobin is 14.1, hematocrit 43.7, WBC of 8.7, platelets 323, neutrophils 87.3. His BUN is 30, creatinine 0.9, glucose 114. Sodium 147, potassium 3.4, chloride 111, CO2 of 25. Albumin is 3, total bilirubin 1.3, AST 28, ALT 33. IMPRESSION/PLAN: 1. Pneumonia. The patient is started on Rocephin and Zithromax. We will continue IV Rocephin and switch to p.o. Zithromax. We will place on albuterol treatments p.r.n. shortness of breath. Currently, the patient does not need any supplemental oxygen. 2. Dehydration with hypernatremia. We will hydrate with saline. Repeat sodium level in the a.m. 3. Weight loss. The patient is not interested in any further workup at the current time. He is anxious to get out of the hospital as soon as possible. Family wants to put him at a higher level of nursing care at [facility]. We will try to place him on the assisted living part of [facility], once discharged. We will place on a trial of Remeron 15 mg q.p.m. We will also check for an influenza screen. Plan of care discussed with the patient and his family members. They agreed and verbalized understanding.
[2016-07-13 14:37] VITALS: BP 116/76
[2016-07-13 18:57] VITALS: BP 102/70
[2016-07-13 23:03] VITALS: BP 110/55
[2016-07-14] VITALS (8 sets, daily range): BP systolic 86–104; BP diastolic 52–78
--- NOTE | 2016-07-14 13:57 | Progress Note ---
Subjective General Brief history: An 85-year-old male who was brought in to the ED because of dizziness and weakness and frequent falls. The patient is not a very good historian. His family is concerned that he has been losing weight and has a poor appetite. The patient reports that there are days that he just does not want to eat. He has a dry cough but no fever or chills. No shortness of breath. No PND, no orthopnea. He denies having any chest pain or pleuritic pains. No abdominal pain, nausea, vomiting. No urinary symptoms. No rash. He was seen in the emergency department where his chest x-ray showed a possible pneumonia. Patient states that he is not wanting any treatment or work up. Is wanting to be comfortable and is interested in hospice evaluation. Physical Exam Vital Signs / I&Os Vital Signs Date Time Temp Pulse Resp B/P Pulse O2 O2 Flow FiO2 Ox Delivery Rate 07/14 1000 97.7 78 16 92/63 98 Room Air 07/14 0935 Room Air 07/14 0915 102/78 07/14 0800 81 16 87/53 97 07/14 0759 99.0 95 16 87/58 96 Room Air 07/14 0331 97.0 07/14 0310 102 18 89/52 98 Room Air 07/13 2303 98.1 109 22 110/55 98 Room Air 07/13 2030 Room Air 07/13 1857 98.1 81 20 102/70 100 07/13 1437 97.9 89 20 116/76 100 07/13 1402 Room Air I&O 07/14 0000 07/13 1600 07/13 0800 Intake Total 740 1030 Output Total 128 229 Balance 612 801 General Appearance Alert, Cooperative HEENT Normal exam Lungs coarse BS bilaterally Cardiovascular Regular rate and rhythm Abdomen Soft, No tenderness Extremities No edema LAB Results Laboratory Tests 07/14 0420 Chemistry Plasma Sodium (136 - 145 mmol/L) 142 Plasma Potassium (3.5 - 5.1 mmol/L) 3.4 Plasma Chloride (98 - 107 mmol/L) 107 CO2 (Enzymatic) (21 - 32 mmol/L) 25 BUN (7 - 18 mg/dL) 20 Creatinine (0.6 - 1.3 mg/dL) 0.6 Est GFR ( Amer) (mL/min) >60 Est GFR (Non-Af Amer) (mL/min) >60 Glucose (70 - 110 mg/dL) 76 Plasma Calcium (8.5 - 10.1 mg/dL) 7.6 Plasma Magnesium (1.8 - 2.4 mg/dL) 1.7 Hematology WBC (4.5 - 11.5 K/uL) 7.8 RBC (4.50 - 5.90 M/uL) 4.09 Hgb (13.5 - 17.5 gm/dL) 12.3 Hct (41.0 - 53.0 %) 37.9 MCV (80 - 100 fL) 93 MCH (26 - 34 pg) 30 RDW (11.6 - 14.8 %) 14.9 Neut % (Auto) (50 - 75 %) 80.5 Lymph % (Auto) (25 - 40 %) 10.1 [place] % (Auto) (3 - 14 %) 7.7 Eos % (Auto) (0 - 4 %) 1.6 Baso % (Auto) (0 - 2 %) 0.1 Plt Count, EDTA (150 - 400 K/uL) 262 PUBS MCHC (31 - 37 g/dL) 32 Microbiology Date/Time Procedure - Status Source Growth 07/13 1500 Influenza Screen - CAN NASALPHAR Cancelled: DUP, SEE M600 Assessment and Plan Problem List 1. Bilateral pneumonia Plan Has pneumonia. weight loss, weakness and would like to have d/c home on hospice and comfort measures only. 2. Dehydration Plan no desire for tubes or further treatment with abx. 3. Hypernatremia Plan Not wanting work up or treatment. Home on hospice.
[2016-07-15 02:19] VITALS: BP 100/63
[2016-07-15 07:21] VITALS: BP 118/76
[2016-07-15 11:22] VITALS: BP 118/76
--- NOTE | 2016-07-15 12:29 | Discharge Summary ---
Discharge Summary Report Admit Date 07/13/16 Discharge Date 07/15/16 Admission Diagnosis 1. Pneumonia 2. COPD 3. Dehydration 4. Hypernatremia 5. Hypokalemia 6. Hypomagnesemia Discharge Diagnosis 1. Pneumonia 2. COPD 3. Dehydration 4. Hypernatremia 5. Hypokalemia 6. Hypomagnesemia Brief History See admission history and physical examination and ER visit note. Hospital Course The following problems and their management were noted during the patient's hospitalization: 1. Pneumonia The patient presented with bilateral pulmonary infiltrates. This is unassociated with elevated Procalcitonin or elevation of WBC. Most likely represents viral infection. Patient refused further antimicrobial therapy. Does not wish to pursue any further therapy for pneumonia. Wishes discharge with comfort measures and hospice care at [facility]. We'll discharge patient on hospice care. 2. COPD Stable. Not problematic during the patient's hospital stay. Combivent MDI when necessary for shortness of breath. 3. Dehydration Much improved. Encourage oral intake post discharge. 4. Hypernatremia Resolved. Sodium on discharge 142 mmol per liter. 5. Hypokalemia Mild. Discharge potassium 3.4. Patient discharged on potassium supplementation. 6. Hypomagnesemia The patient with mild hypomagnesemia. Patient discharged on mag 64 one by mouth twice a day. Outpatient follow-up with PCP. General Appearance Alert, Cooperative, No acute distress Lungs Clear to auscultation Cardiovascular Regular Rate, Normal S1, Normal S2 Abdomen Normal bowel sounds, Soft, No tenderness Neurological Cranial nerves 3-12 NL Psych/Mental Status Mental status NL, Mood NL Discharge Instructions/Meds For other recommendations regarding discharge diet, activity, followup, and discharge medications please see the patient's discharge instructions. Discharge condition: Fair, stable Greater than 30 min. was spent in the patient's discharge preparation including discharge interview and physical examination, progress note, discharge instructions, and discharge summary The patient was interviewed and examined on the day of discharge. The patient has elected to be discharged to hospice care at his [facility] facility. E&M Codes Discharge: Inpt >30 min spent/[id number]
--- NOTE | 2016-07-15 12:29 | Discharge Summary ---
Discharge Summary Report Admit Date 07/13/16 Discharge Date 07/15/16 Admission Diagnosis 1. Pneumonia 2. COPD 3. Dehydration 4. Hypernatremia 5. Hypokalemia 6. Hypomagnesemia Discharge Diagnosis 1. Pneumonia 2. COPD 3. Dehydration 4. Hypernatremia 5. Hypokalemia 6. Hypomagnesemia Brief History See admission history and physical examination and ER visit note. Hospital Course The following problems and their management were noted during the patient's hospitalization: 1. Pneumonia The patient presented with bilateral pulmonary infiltrates. This is unassociated with elevated Procalcitonin or elevation of WBC. Most likely represents viral infection. Patient refused further antimicrobial therapy. Does not wish to pursue any further therapy for pneumonia. Wishes discharge with comfort measures and hospice care at [facility]. We'll discharge patient on hospice care. 2. COPD Stable. Not problematic during the patient's hospital stay. Combivent MDI when necessary for shortness of breath. 3. Dehydration Much improved. Encourage oral intake post discharge. 4. Hypernatremia Resolved. Sodium on discharge 142 mmol per liter. 5. Hypokalemia Mild. Discharge potassium 3.4. Patient discharged on potassium supplementation. 6. Hypomagnesemia The patient with mild hypomagnesemia. Patient discharged on mag 64 one by mouth twice a day. Outpatient follow-up with PCP. General Appearance Alert, Cooperative, No acute distress Lungs Clear to auscultation Cardiovascular Regular Rate, Normal S1, Normal S2 Abdomen Normal bowel sounds, Soft, No tenderness Neurological Cranial nerves 3-12 NL Psych/Mental Status Mental status NL, Mood NL Discharge Instructions/Meds For other recommendations regarding discharge diet, activity, followup, and discharge medications please see the patient's discharge instructions. Discharge condition: Fair, stable Greater than 30 min. was spent in the patient's discharge preparation including discharge interview and physical examination, progress note, discharge instructions, and discharge summary The patient was interviewed and examined on the day of discharge. The patient has elected to be discharged to hospice care at his [facility] facility. E&M Codes Discharge: Inpt >30 min spent/[id number]
[2016-07-15] MEDS ORDERED: COMBIVENT RESPIMAT IN (13:35)
[2016-07-15] MEDS ORDERED: REMERON15 MG PO (13:35)
[2016-07-15] MEDS ORDERED: MAG6464 MG PO (13:38)
[2016-07-15] MEDS ORDERED: MICRO-K10 MEQ PO (13:38)
--- NOTE | 2016-07-15 13:40 | Provider's Discharge Care Plan ---
Problem, Goal, Plan Problem List 1. COPD (chronic obstructive pulmonary disease) Goals: Improve disease control, Prevent disease progress Instructions: Follow up as directed, Take meds as directed 2. Hypomagnesemia Goals: Improve disease control, Prevent disease progress Instructions: Follow up as directed, Take meds as directed 3. Hypokalemia Goals: Improve disease control, Prevent disease progress Instructions: Follow up as directed, Take meds as directed
--- NOTE | 2016-07-20 03:55 | ED MAR SUMMARY ---
..... Medication Administration Record [facility] [address] [place] [address] Patient: PARTH TREVIZO Visit ID: [id number] 85y, M Weight: 68.0 kg Height/Length: 72 in BMI: 20.3 ALLERGIES: None Start 08:32 07/13/2016 Isela Castaneda R.N., Stop 09:15 07/13/2016 Rhiannon Hopper R.N. Medication Administered: IV NS (SALINE), Dose: IV Fluids over 1 hour(s), Rate: 250 mL/hr, Dispensed: 500 mL bag, Site: #1 right forearm. Medication Ordered: IV NS : initial bolus 500 mL (1000 mL/hr), then none - for X1 (NOW). Start 09:24 07/13/2016 Rhiannon Hopper R.N., Stop 09:46 07/13/2016 Ros Mena R.N. Medication Administered: CEFTRIAXONE [IVPB], Dose: 2 gm IVPB over 30 minute(s), Rate: 150 mL/hr, Dispensed: 50 mL bag, Site: #1 right forearm. Medication Ordered: Ceftriaxone IV 2 gm/50mL (NOW).
--- NOTE | 2016-07-20 03:55 | ED MAR SUMMARY ---
..... Medication Administration Record [facility] [address] [place] [address] Patient: PARTH TREVIZO Visit ID: [id number] 85y, M Weight: 68.0 kg Height/Length: 72 in BMI: 20.3 ALLERGIES: None Start 08:32 07/13/2016 Isela Castaneda R.N., Stop 09:15 07/13/2016 Rhiannon Hopper R.N. Medication Administered: IV NS (SALINE), Dose: IV Fluids over 1 hour(s), Rate: 250 mL/hr, Dispensed: 500 mL bag, Site: #1 right forearm. Medication Ordered: IV NS : initial bolus 500 mL (1000 mL/hr), then none - for X1 (NOW). Start 09:24 07/13/2016 Rhiannon Hopper R.N., Stop 09:46 07/13/2016 Ros Mena R.N. Medication Administered: CEFTRIAXONE [IVPB], Dose: 2 gm IVPB over 30 minute(s), Rate: 150 mL/hr, Dispensed: 50 mL bag, Site: #1 right forearm. Medication Ordered: Ceftriaxone IV 2 gm/50mL (NOW).
--- NOTE | 2016-07-20 03:55 | ED MED RECONCILIATION SUMMARY ---
Patient: PARTH TREVIZO Medication Reconciliation Report [facility] VisitID: [id number] [address] [place] [address] 85y, M Registration Date/Time: 07/13/2016 Weight: 68.0 kg Height/Length: 72 in. BMI: 20.3 ALLERGIES: None The patient's Home Medications are listed below: NONE. The source(s) of the original Home Medication information: patient The following Medications were given to the patient in the Emergency Department: IV NS IV Fluids bolus 0, then 250 mL/hr, administered: 07/13/2016 8:32:00 AM Ceftriaxone [IVPB] IVPB bolus 0, then 2 gm 150 mL/hr, administered: 07/13/2016 9:24:00 AM The following Medications were prescribed to the patient: None.
--- NOTE | 2016-07-20 03:55 | ED DISCHARGE INSTRUCTIONS ---
Patient: PARTH TREVIZO General Instructions [facility] VisitID: [id number] [address] [place] [address] 85y, M Registration Date/Time: 07/13/2016 Acute hypernatremia bilateral pneumonia, acute bacterial acute dehydration. (Electronically signed by Ayan Hernandes Dr. 07/20/2016 3:55)
--- NOTE | 2016-07-20 03:55 | ED MED RECONCILIATION SUMMARY ---
Patient: PARTH TREVIZO Medication Reconciliation Report [facility] VisitID: [id number] [address] [place] [address] 85y, M Registration Date/Time: 07/13/2016 Weight: 68.0 kg Height/Length: 72 in. BMI: 20.3 ALLERGIES: None The patient's Home Medications are listed below: NONE. The source(s) of the original Home Medication information: patient The following Medications were given to the patient in the Emergency Department: IV NS IV Fluids bolus 0, then 250 mL/hr, administered: 07/13/2016 8:32:00 AM Ceftriaxone [IVPB] IVPB bolus 0, then 2 gm 150 mL/hr, administered: 07/13/2016 9:24:00 AM The following Medications were prescribed to the patient: None.
--- NOTE | 2016-07-20 03:55 | ED DISCHARGE INSTRUCTIONS ---
Patient: PARTH TREVIZO General Instructions [facility] VisitID: [id number] [address] [place] [address] 85y, M Registration Date/Time: 07/13/2016 Acute hypernatremia bilateral pneumonia, acute bacterial acute dehydration. (Electronically signed by Ayan Hernandes Dr. 07/20/2016 3:55)
== END 2016-07-15 15:08 | DRG 190 ==
LOC: ED SRH 07:53 → TRANS SRH 09:51 → ACUTE2 SRH 11:03 → CC SRH 11:03 → ACUTE2 SRH 11:03
PROVIDERS: ADMIT Student in an Organized Health Care Education/Training Program
DX: J44.0 Chronic obstructive pulmonary disease with (acute) lower respiratory infection (principal); J18.9 Pneumonia, unspecified organism; E87.0 Hyperosmolality and hypernatremia; E86.0 Dehydration; E87.6 Hypokalemia; E83.42 Hypomagnesemia; R63.4 Abnormal weight loss
CPT/HCPCS: 83742; 83921; 85241; 90004; 90047; 90065; 90074; 90100; 91400; 92031; 92132; 92235; 92720; 93004; 93140; 95059